=== PATIENT | female | born 1985 | race Caucasian/White ===

== ENCOUNTER 2017-07-02 14:58 | Emergency (ER) | payer OTHER ==
[~2017-07-02] VITALS: Ht 157.5 cm; Wt 97.5 kg
[~2017-07-02 14:58] MED LIST: AMOXICILLIN 50500 MG PO; AMOXIL 875 MG875 M2 PO; AUGMENTIN 875-1 EACH PO; CIPRODEX OTIC7.5 ML OTIC; CIPROFLOXACIN250 M2 PO; CIPROFLOXACIN500 M1 PO; IBUPROFEN 800800 M1 PO; IBUPROFEN 800800 MG PO; LIDOCAINE VISC100 M1 MM; NOHOMEMEDICATIONS; NORCO 5-325 TA1 EACH PO; PENICILLIN VK500 M1 PO; PYRIDIUM200 M2 PO; TRAMADOL 50 MG50 MG PO; ULTRAM50 MG PO; ZOFRAN ODT4 MG PO
[2017-07-02 15:31] LABS: ABSOLUTE BASOPHILS 0.1 thou/uL (0.0-0.2); ABSOLUTE EOSINOPHILS 0.2 thou/uL (0.0-0.7); ABSOLUTE LYMPHOCYTES 2.8 thou/uL (0.8-5.3); ABSOLUTE MONOCYTES 0.6 thou/uL (0.0-1.2); ABSOLUTE NEUTROPHILS 6.9 thou/uL (1.6-8.1); BASOPHILS 1.3 %; EOSINOPHILS 1.8 %; HEMATOCRIT 45.1 % (37.0-47.0); HEMOGLOBIN 14.5 gm/dL (12.0-15.0); LYMPHOCYTES 26.4 %; MCH 29.9 pg (26.0-34.0); MCHC 32.2 g/dL (28.0-37.0); MCV 92.7 fL (80.0-100.0); MONOCYTES 5.3 %; MPV 10.7 fl. (7.2-11.1); NUCLEATED RBCS 0 /100WBC; PLATELET COUNT* 218 thou/uL (150-400); POLYS 65.2 %; RBC 4.87 mil/uL (4.20-5.00); WBC 10.6 thou/uL (4.0-11.0)
[2017-07-02 15:38] LABS: CALCIUM 9.1 mg/dL (8.5-10.1); POTASSIUM 4.1 mmol/L (3.5-5.1)
[2017-07-02 15:43] LABS: TOTAL BILIRUBIN 0.5 mg/dL (<0.1-1.0); TOTAL PROTEIN 7.5 g/dL (6.4-8.2)
[2017-07-02 15:57] LABS: ICTOTEST (BILI CONFIRMATORY) Negative (Negative); URINE BILIRUBIN 1+ (Negative); URINE BLOOD TRACE (Negative); URINE CLARITY CLEAR; URINE COLOR DARK YELLOW; URINE GLUCOSE-RANDOM NEGATIVE (Negative); URINE KETONES TRACE (Negative); URINE LEUKOCYTES-REFLEX NEGATIVE (Negative); URINE NITRITE-REFLEX NEGATIVE (Negative); URINE PROTEIN TRACE (Negative); URINE SPECIFIC GRAVITY >= 1.030 (1.005-1.030)
[2017-07-02] MEDS ORDERED: CYCLOBENZAPRINE5 MG PO (16:53)
[2017-07-02] MEDS ORDERED: NAPROSYN500 MG PO (16:53)
[2017-07-02 17:15] VITALS: BP 118/88
== END 2017-07-02 17:15 | disposition home or self-care (01) ==
LOC: M.ERS 14:58
PROVIDERS: Nurse Practitioner Family
DX: M54.5 Low back pain (principal); F17.210 Nicotine dependence, cigarettes, uncomplicated

== ENCOUNTER 2017-07-06 19:49 | Emergency (ER) | payer OTHER ==
[~2017-07-06] VITALS: Ht 157.5 cm; Wt 97.5 kg
[~2017-07-06 19:49] MED LIST changes: +CYCLOBENZAPRINE5 MG PO; +NAPROSYN500 MG PO
[2017-07-06] MEDS ORDERED: CIPROFLOXIN HC2.5 M1 OTIC (20:31)
[2017-07-06] MEDS ORDERED: ACETAMINOPHEN-1 EAC1 PO (20:34)
[2017-07-06 20:40] VITALS: BP 132/88
== END 2017-07-06 20:40 | disposition home or self-care (01) ==
LOC: M.ERS 19:49
DX: H60.91 Unspecified otitis externa, right ear (principal); F17.210 Nicotine dependence, cigarettes, uncomplicated

== ENCOUNTER 2018-11-28 19:52 | Emergency (ER) | payer OTHER ==
[~2018-11-28] VITALS: Ht 157.5 cm; Wt 104.3 kg
[~2018-11-28 19:52] MED LIST changes: +ACETAMINOPHEN-1 EAC1 PO; +CIPROFLOXIN HC2.5 M1 OTIC
[2018-11-28 20:17] VITALS: BP 121/90
[2018-11-28] MEDS ORDERED: KEFLEX500 M1 PO (20:46)
[2018-11-28] MEDS ORDERED: CIPROFLOXIN HC2.5 M1 OTIC (20:46)
== END 2018-11-28 21:01 | disposition home or self-care (01) ==
LOC: M.ERS 19:52
DX: H66.91 Otitis media, unspecified, right ear (principal); H60.91 Unspecified otitis externa, right ear; F17.210 Nicotine dependence, cigarettes, uncomplicated

== ENCOUNTER 2019-05-21 10:46 | Emergency (ER) | payer OTHER ==
[~2019-05-21] VITALS: Ht 157.5 cm; Wt 90.7 kg
[~2019-05-21 10:46] MED LIST changes: +KEFLEX500 M1 PO
[2019-05-21] MEDS ORDERED: HYDROXYZINE HCL25 M2 PO (12:14)
[2019-05-21] MEDS ORDERED: PREDNISONE 10 M10 MG PO (12:14)
[2019-05-21 12:20] VITALS: BP 123/84
== END 2019-05-21 12:21 | disposition home or self-care (01) ==
LOC: M.ERS 10:46
DX: L53.9 Erythematous condition, unspecified (principal); F17.210 Nicotine dependence, cigarettes, uncomplicated

== ENCOUNTER 2019-09-18 19:46 | Emergency (ER) | payer OTHER ==
[~2019-09-18] VITALS: Ht 157.5 cm; Wt 90.7 kg
[~2019-09-18 19:46] MED LIST changes: +HYDROXYZINE HCL25 M2 PO; +PREDNISONE 10 M10 MG PO
[2019-09-18 19:55] VITALS: BP 126/84
[2019-09-18] MEDS ORDERED: PERCOCET 7.5-31 EAC1 PO (20:13)
[2019-09-18] MEDS ORDERED: CIPROFLOXIN HC2.5 M1 OTIC (20:13)
[2019-09-18] MEDS ORDERED: CLEOCIN HCL300 MG PO (20:13)
== END 2019-09-18 19:50 | disposition home or self-care (01) ==
LOC: M.ERS 19:46
DX: H60.11 Cellulitis of right external ear (principal); F17.210 Nicotine dependence, cigarettes, uncomplicated

== ENCOUNTER 2020-01-03 09:01 | Emergency (ER) | payer OTHER ==
[~2020-01-03] VITALS: Ht 157.5 cm; Wt 99.8 kg
[~2020-01-03 09:01] MED LIST changes: +CLEOCIN HCL300 MG PO; +PERCOCET 7.5-31 EAC1 PO
[2020-01-03] MEDS ORDERED: BACTRIM DS TAB1 EAC1 PO (09:42)
[2020-01-03] MEDS ORDERED: NORCO 5-325 TA1 EAC2 PO (09:42)
[2020-01-03 09:52] VITALS: BP 138/73
== END 2020-01-03 09:53 | disposition home or self-care (01) ==
LOC: M.ERS 09:01
DX: L03.116 Cellulitis of left lower limb (principal); F17.210 Nicotine dependence, cigarettes, uncomplicated

== ENCOUNTER 2020-02-09 11:17 | Emergency (ER) | payer OTHER ==
[~2020-02-09] VITALS: Ht 167.6 cm; Wt 81.7 kg
[~2020-02-09 11:17] MED LIST changes: +BACTRIM DS TAB1 EAC1 PO; +NORCO 5-325 TA1 EAC2 PO
[2020-02-09 11:27] VITALS: BP 131/74
[2020-02-09] MEDS ORDERED: PREDNISONE 10 M10 M1 PO (11:44)
[2020-02-09] MEDS ORDERED: DIPHENHIST50 MG PO (11:44)
== END 2020-02-09 11:59 | disposition home or self-care (01) ==
LOC: M.ERS 11:17
DX: L50.9 Urticaria, unspecified (principal); T78.40XA Allergy, unspecified, initial encounter; F17.210 Nicotine dependence, cigarettes, uncomplicated; X58.XXXA Exposure to other specified factors, initial encounter